=== PATIENT | female | born 1970 | race Caucasian/White ===

== ENCOUNTER 2016-08-29 19:19 | Emergency (ER) | payer MEDICAID, OTHER ==
[~2016-08-29] VITALS: Ht 162.6 cm; Wt 68.0 kg
[~2016-08-29 19:19] MED LIST: BENZ0.5T32 PO; CLON.1 PO; FLUP10 PO; LITH300C3 PO; RISP2 PO
[2016-08-29] MEDS ORDERED: [UNRECOGNIZED DRUG - REMARK] OU (19:46)
[2016-08-29 19:52] LABS: GLUCOSE,POINT OF CARE 127 MG/DL (70-110)
[2016-08-29] MEDS ORDERED: ACETAMINOPHEN 500 MG TABLET PO ONE (22:45)
[2016-08-29] MEDS ORDERED: KETOROLAC TROMETHAMINE 30 MG/ML VIAL IVP ONE (22:45)
[2016-08-29 23:03] LABS: BASOPHILS % (AUTO) 0.6 % (0.0-2.0); EOSINOPHILS % (AUTO) 0.9 % (1.0-6.0); HEMATOCRIT 32.7 % (36-46); HEMOGLOBIN 11.1 g/dL (12.0-16.0); LYMPHOCYTES # (AUTO) 3.1 K/uL (1.0-4.8); LYMPHOCYTES % (AUTO) 41.4 % (22.0-44.0); MEAN CORPUSCULAR HEMOGLOBIN 28.6 pg (26.0-34.0); MEAN CORPUSCULAR HGB CONC 33.9 G/dL (31.0-37.0); MEAN CORPUSCULAR VOLUME 84 fL (80-100); MONOCYTES # (AUTO) 0.5 K/uL (0.1-1.0); MONOCYTES % (AUTO) 6.2 % (2.0-9.0); NEUTROPHILS # (AUTO) 3.8 K/uL (1.8-7.7); NEUTROPHILS % (AUTO) 50.9 % (40.0-70.0); PLATELET COUNT (AUTO) 159 K/uL (150-450); RED BLOOD CELL COUNT(AUTO) 3.88 MIL/uL (4.00-5.20); RED CELL DISTRIBUTION WIDTH 14.6 % (11.5-14.5); WHITE BLOOD COUNT (AUTO) 7.5 K/uL (4.5-11.0)
[2016-08-29 23:17] LABS: ANION GAP 9 mmol/L (8-16); CALCIUM, TOTAL 8.3 mg/dL (8.8-10.5); CARBON DIOXIDE 25 mmol/L (22-29); CHLORIDE 105 mmol/L (98-107); GLOMERULAR FILTR. RATE CALC > 60 mL/min (>60); POTASSIUM 3.5 mmol/L (3.5-5.1); SODIUM SERUM 139 mmol/L (136-145); UREA NITROGEN, BLOOD 10 mg/dL (7-18)
[2016-08-29 23:23] LABS: ALANINE AMINOTRANSFERASE 24 U/L (12-78); ALBUMIN 3.6 g/dL (3.4-5.0); ASPARTATE AMINOTRANSFERASE 9 U/L (15-37); BILIRUBIN,TOTAL 0.4 mg/dL (0.1-1.0); TOTAL PROTEIN, SERUM 6.8 g/dL (6.4-8.2)
[2016-08-29 23:29] VITALS: BP 115/65
== END 2016-08-30 00:22 | disposition home or self-care (01) ==
LOC: EMS 19:20
DX: M62.838 Other muscle spasm (principal); R07.89 Other chest pain; I25.2 Old myocardial infarction; F17.210 Nicotine dependence, cigarettes, uncomplicated; F12.90 Cannabis use, unspecified, uncomplicated
CPT/HCPCS: 36415; 71010; 80053; 82962; 84484; 84703; 85025; 93005; 96374; 99285; 99406; J1885

== ENCOUNTER 2016-09-05 11:21 | Emergency (ER) | payer OTHER ==
[~2016-09-05] VITALS: Ht 162.6 cm; Wt 68.2 kg
[~2016-09-05 11:21] MED LIST changes: -CLON.1 PO; -FLUP10 PO; -LITH300C3 PO; +[UNRECOGNIZED DRUG - REMARK] OU
[2016-09-05] MEDS ORDERED: RISP4 PO (11:40)
[2016-09-05 11:47] LABS: GLUCOSE,POINT OF CARE 108 MG/DL (70-110)
[2016-09-05] MEDS ORDERED: MECLIZINE HCL 25 MG TABLET PO ONE (12:00)
[2016-09-05 12:02] LABS: BASOPHILS % (AUTO) 0.7 % (0.0-2.0); EOSINOPHILS % (AUTO) 1.1 % (1.0-6.0); HEMATOCRIT 35.1 % (36-46); HEMOGLOBIN 12.2 g/dL (12.0-16.0); LYMPHOCYTES # (AUTO) 1.1 K/uL (1.0-4.8); LYMPHOCYTES % (AUTO) 18.2 % (22.0-44.0); MEAN CORPUSCULAR HEMOGLOBIN 29.5 pg (26.0-34.0); MEAN CORPUSCULAR HGB CONC 34.8 G/dL (31.0-37.0); MEAN CORPUSCULAR VOLUME 85 fL (80-100); MONOCYTES # (AUTO) 0.7 K/uL (0.1-1.0); MONOCYTES % (AUTO) 12.8 % (2.0-9.0); NEUTROPHILS # (AUTO) 3.9 K/uL (1.8-7.7); NEUTROPHILS % (AUTO) 67.2 % (40.0-70.0); PLATELET COUNT (AUTO) 146 K/uL (150-450); RED BLOOD CELL COUNT(AUTO) 4.14 MIL/uL (4.00-5.20); RED CELL DISTRIBUTION WIDTH 14.6 % (11.5-14.5); WHITE BLOOD COUNT (AUTO) 5.8 K/uL (4.5-11.0)
[2016-09-05 12:45] VITALS: BP 111/76
[2016-09-05 12:49] LABS: ANION GAP 13 mmol/L (8-16); CARBON DIOXIDE 23 mmol/L (22-29); CHLORIDE 102 mmol/L (98-107); CREATININE 0.78 mg/dL (0.60-1.30); GLOMERULAR FILTR. RATE CALC > 60 mL/min (>60); SODIUM SERUM 138 mmol/L (136-145); UREA NITROGEN, BLOOD 11 mg/dL (7-18)
[2016-09-05 13:13] LABS: ALANINE AMINOTRANSFERASE 24 U/L (12-78); ALBUMIN 3.8 g/dL (3.4-5.0); ASPARTATE AMINOTRANSFERASE 16 U/L (15-37); BILIRUBIN,TOTAL 0.5 mg/dL (0.1-1.0); CREATINE KINASE MB 0.5 ng/mL (0-5); CREATINE KINASE, TOTAL 89 U/L (26-192); TOTAL PROTEIN, SERUM 7.3 g/dL (6.4-8.2)
== END 2016-09-05 13:39 | disposition home or self-care (01) ==
LOC: EMS 11:22
DX: R42 Dizziness and giddiness (principal); R07.89 Other chest pain; J40 Bronchitis, not specified as acute or chronic; F20.9 Schizophrenia, unspecified; I25.2 Old myocardial infarction; F12.90 Cannabis use, unspecified, uncomplicated; F17.210 Nicotine dependence, cigarettes, uncomplicated
CPT/HCPCS: 70450; 82962; 93005; 99285

== ENCOUNTER 2017-07-25 18:48 | Emergency (ER) | payer OTHER ==
[~2017-07-25] VITALS: Ht 162.6 cm; Wt 80.5 kg
[~2017-07-25 18:48] MED LIST changes: -RISP2 PO; +RISP4 PO
[2017-07-25] MEDS ORDERED: BENZ1TAB10 PO (19:38)
[2017-07-25] MEDS ORDERED: IBUPROFEN 800 MG TABLET PO ONE (19:45)
[2017-07-25 21:00] VITALS: BP 138/78
== END 2017-07-25 22:42 | disposition home or self-care (01) ==
LOC: EMS 18:52
DX: S93.401A Sprain of unspecified ligament of right ankle, initial encounter (principal); F17.210 Nicotine dependence, cigarettes, uncomplicated; F12.90 Cannabis use, unspecified, uncomplicated; I25.2 Old myocardial infarction; X58.XXXA Exposure to other specified factors, initial encounter; Y93.89 Activity, other specified; Y92.89 Other specified places as the place of occurrence of the external cause; Y99.8 Other external cause status
CPT/HCPCS: 99284

== ENCOUNTER 2018-01-04 17:16 | Emergency (ER) | payer OTHER ==
[~2018-01-04] VITALS: Ht 162.6 cm; Wt 77.3 kg
[~2018-01-04 17:16] MED LIST changes: -BENZ0.5T32 PO; +BENZ1TAB10 PO
[2018-01-04 17:59] LABS: GLUCOSE,POINT OF CARE 103 MG/DL (70-110)
[2018-01-04 18:39] LABS: APPEARANCE,URINE CLOUDY (CLEAR); BILIRUBIN,URINE NEGATIVE (NEGATIVE); GLUCOSE, URINE (UA) NEGATIVE (NEGATIVE); KETONES,URINE NEGATIVE (NEGATIVE); LEUKOCYTE ESTERASE ,URINE NEGATIVE (NEGATIVE); NITRATE,URINE NEGATIVE (NEGATIVE); OCCULT BLOOD,URINE NEGATIVE (NEGATIVE); PROTEIN,URINE NEGATIVE (NEGATIVE); UROBILINOGEN,URINE 0.2 mg/dL (<=1.0)
[2018-01-04 18:41] LABS: RAPID GROUP A STREP NEGATIVE (NEGATIVE)
[2018-01-04 18:55] LABS: INFLUENZA TYPE A NEGATIVE FOR TYPE A (NEGATIVE); INFLUENZA TYPE B NEGATIVE FOR TYPE B (NEGATIVE)
[2018-01-04] MEDS ORDERED: KETOROLAC TROMETHAMINE 60 MG/2 ML VIAL IM ONE (19:45)
[2018-01-04 20:06] VITALS: BP 133/78
== END 2018-01-04 20:15 | disposition home or self-care (01) ==
LOC: EMS 17:17
DX: H54.8 Legal blindness, as defined in USA (principal); R51 Headache; E11.9 Type 2 diabetes mellitus without complications; I25.2 Old myocardial infarction; F20.9 Schizophrenia, unspecified; F17.210 Nicotine dependence, cigarettes, uncomplicated; F12.90 Cannabis use, unspecified, uncomplicated; Z79.899 Other long term (current) drug therapy
CPT/HCPCS: 81003; 82962; 87430; 87804; 96372; 99284; 99406; J1885

== ENCOUNTER 2021-10-29 11:02 | Emergency (ER) | payer OTHER ==
[~2021-10-29] VITALS: Ht 162.6 cm; Wt 68.2 kg
[~2021-10-29 11:02] MED LIST changes: -BENZ1TAB10 PO; +BENZ1TAB96 PO; -RISP4 PO; +RISP4TAB73 PO
[2021-10-29 11:32] VITALS: BP 95/60
[2021-10-29] MEDS ORDERED: TIMO5DRO35 OU (11:36)
[2021-10-29] MEDS ORDERED: ACETAMINOPHEN 500 MG TABLET PO ONE (13:00)
[2021-10-29] MEDS ORDERED: BACITRACIN 28 GM OINTMENT TP ONE (13:00)
[2021-10-29] MEDS ORDERED: DOXYCYCLINE HYCLATE 100 MG TABLET PO ONE (13:00)
[2021-10-29] MEDS ORDERED: DOXY-354 PO (13:08)
[2021-10-29 13:21] LABS: GLUCOMETER DEV NAME(LOC) ERT.5; GLUCOSE,POINT OF CARE 69 MG/DL (70-110)
== END 2021-10-29 13:41 | disposition home or self-care (01) ==
LOC: EMS 11:02
DX: S81.802A Unspecified open wound, left lower leg, initial encounter (principal); S81.801A Unspecified open wound, right lower leg, initial encounter; L03.116 Cellulitis of left lower limb; L03.115 Cellulitis of right lower limb; E11.9 Type 2 diabetes mellitus without complications; H40.9 Unspecified glaucoma; F20.9 Schizophrenia, unspecified; H54.8 Legal blindness, as defined in USA; F12.10 Cannabis abuse, uncomplicated; X58.XXXA Exposure to other specified factors, initial encounter; Y93.89 Activity, other specified; Y92.89 Other specified places as the place of occurrence of the external cause; Y99.8 Other external cause status
CPT/HCPCS: 82948; 82962; 99283; 99284

== ENCOUNTER 2022-05-22 08:55 | Emergency (ER) | payer OTHER ==
[~2022-05-22] VITALS: Ht 162.6 cm; Wt 68.2 kg
[~2022-05-22 08:55] MED LIST changes: +DOXY-354 PO; +RISP3TAB35 PO; +TIMO5DRO35 OU
[2022-05-22] MEDS ORDERED: OFLO35OS OU (09:02)
[2022-05-22] MEDS ORDERED: KETOROLAC TROMETHAMINE 30 MG/ML VIAL IM ONE (12:15)
[2022-05-22] MEDS ORDERED: ACETAMINOPHEN 500 MG TABLET PO ONE (12:15)
[2022-05-22 13:24] VITALS: BP 133/78
== END 2022-05-22 13:41 | disposition home or self-care (01) ==
LOC: EMS 08:57
DX: S09.90XA Unspecified injury of head, initial encounter (principal); E11.9 Type 2 diabetes mellitus without complications; F20.9 Schizophrenia, unspecified; F17.210 Nicotine dependence, cigarettes, uncomplicated; H54.8 Legal blindness, as defined in USA; F12.90 Cannabis use, unspecified, uncomplicated; Z98.890 Other specified postprocedural states; X58.XXXA Exposure to other specified factors, initial encounter; Y93.89 Activity, other specified; Y92.89 Other specified places as the place of occurrence of the external cause; Y99.8 Other external cause status
CPT/HCPCS: 99283; 96372; J1885

== ENCOUNTER 2022-06-25 08:12 | Emergency (ER) | payer OTHER ==
[~2022-06-25] VITALS: Ht 165.1 cm; Wt 75.0 kg
[~2022-06-25 08:12] MED LIST changes: -DOXY-354 PO; +OFLO35OS OU; -TIMO5DRO35 OU; +TIMO5DRO47 OU
[2022-06-25] MEDS ORDERED: RISP1DIS IM (08:17)
[2022-06-25] MEDS ORDERED: BENZ2TAB76 PO (08:17)
[2022-06-25] MEDS ORDERED: IBUPROFEN 600 MG TABLET PO ONE (09:45)
[2022-06-25] MEDS ORDERED: ACETAMINOPHEN 325 MG TABLET PO ONE (09:45)
[2022-06-25 11:08] LABS: APPEARANCE,URINE CLEAR (CLEAR); BILIRUBIN,URINE NEGATIVE (NEGATIVE); GLUCOSE, URINE (UA) NEGATIVE (NEGATIVE); KETONES,URINE NEGATIVE (NEGATIVE); LEUKOCYTE ESTERASE ,URINE NEGATIVE (NEGATIVE); NITRATE,URINE NEGATIVE (NEGATIVE); OCCULT BLOOD,URINE NEGATIVE (NEGATIVE); PROTEIN,URINE NEGATIVE (NEGATIVE); SPECIFIC GRAVITIY, URINE 1.002 (1.003-1.030); UROBILINOGEN,URINE <=1.0 mg/dL (<=1.0)
[2022-06-25 11:46] VITALS: BP 128/69
[2022-06-25] MEDS ORDERED: AMOX1TAB16 PO (12:07)
== END 2022-06-25 12:33 | disposition home or self-care (01) ==
LOC: EMS 08:15
DX: K08.89 Other specified disorders of teeth and supporting structures (principal); N76.89 Other specified inflammation of vagina and vulva; E11.9 Type 2 diabetes mellitus without complications; F20.9 Schizophrenia, unspecified; F17.210 Nicotine dependence, cigarettes, uncomplicated; F12.90 Cannabis use, unspecified, uncomplicated; Z98.890 Other specified postprocedural states; H54.8 Legal blindness, as defined in USA
CPT/HCPCS: 81003; 82962; 87255; 87491; 87591; 99283

== ENCOUNTER 2022-09-23 08:01 | Emergency (ER) | payer OTHER ==
[~2022-09-23] VITALS: Ht 162.6 cm; Wt 68.2 kg
[~2022-09-23 08:01] MED LIST changes: +AMOX1TAB16 PO; -BENZ1TAB96 PO; +BENZ2TAB71 PO; -OFLO35OS OU; +RISP1DIS IM; -RISP3TAB35 PO; -RISP4TAB73 PO; -TIMO5DRO47 OU; -[UNRECOGNIZED DRUG - REMARK] OU
[2022-09-23] MEDS ORDERED: TETR15DR24 OP (08:04)
[2022-09-23 08:05] VITALS: TEMP 98.6
[2022-09-23] MEDS ORDERED: OxyCODONE HCL/ACETAMINOPHEN 5-325 MG TABLET PO ONE (08:45)
[2022-09-23] MEDS ORDERED: HYDR-4723 PO (09:50)
[2022-09-23 11:47] VITALS: BP 125/86; PULSE 82; RESP 16
== END 2022-09-23 11:51 | disposition home or self-care (01) ==
LOC: EMS 08:04
DX: S02.5XXA Fracture of tooth (traumatic), initial encounter for closed fracture (principal); E11.9 Type 2 diabetes mellitus without complications; F20.9 Schizophrenia, unspecified; I25.2 Old myocardial infarction; H40.9 Unspecified glaucoma; I63.9 Cerebral infarction, unspecified; F17.210 Nicotine dependence, cigarettes, uncomplicated; F12.90 Cannabis use, unspecified, uncomplicated; X58.XXXA Exposure to other specified factors, initial encounter; Y93.89 Activity, other specified; Y92.89 Other specified places as the place of occurrence of the external cause; Y99.8 Other external cause status
CPT/HCPCS: 99283

== ENCOUNTER 2022-11-01 11:52 | Emergency (ER) | payer OTHER ==
[~2022-11-01] VITALS: Ht 162.6 cm; Wt 68.2 kg
[~2022-11-01 11:52] MED LIST changes: +HYDR-4723 PO; +IBUP-1492 PO; +TETR15DR24 OP
[2022-11-01 11:59] VITALS: TEMP 98.6
[2022-11-01] MEDS ORDERED: KETOROLAC TROMETHAMINE 60 MG/2 ML VIAL IM ONE (13:45)
[2022-11-01] MEDS ORDERED: CEPH-558 PO (16:05)
[2022-11-01 17:17] VITALS: BP 131/72; PULSE 66; RESP 18
== END 2022-11-01 17:18 | disposition home or self-care (01) ==
LOC: EMS 11:54
DX: S90.211A Contusion of right great toe with damage to nail, initial encounter (principal); F17.210 Nicotine dependence, cigarettes, uncomplicated; F10.90 Alcohol use, unspecified, uncomplicated; F20.9 Schizophrenia, unspecified; H54.8 Legal blindness, as defined in USA; Z98.890 Other specified postprocedural states; W45.8XXA Other foreign body or object entering through skin, initial encounter; Y93.89 Activity, other specified; Y92.89 Other specified places as the place of occurrence of the external cause; Y99.8 Other external cause status
CPT/HCPCS: 99283; 73620; 96372; J1885

== ENCOUNTER 2022-11-03 09:20 | Emergency (ER) | payer OTHER ==
[~2022-11-03] VITALS: Ht 162.6 cm; Wt 68.2 kg
[~2022-11-03 09:20] MED LIST changes: -AMOX1TAB16 PO; +CEPH-558 PO; -HYDR-4723 PO; -IBUP-1492 PO
[2022-11-03 09:26] VITALS: BP 106/69; PULSE 78; RESP 16; TEMP 98.4
[2022-11-03] MEDS ORDERED: OxyCODONE HCL/ACETAMINOPHEN 5-325 MG TABLET PO ONE (11:15)
== END 2022-11-03 11:37 | disposition home or self-care (01) ==
LOC: EMS 09:20
DX: S90.211A Contusion of right great toe with damage to nail, initial encounter (principal); E11.9 Type 2 diabetes mellitus without complications; F20.9 Schizophrenia, unspecified; H54.8 Legal blindness, as defined in USA; F17.210 Nicotine dependence, cigarettes, uncomplicated; F10.90 Alcohol use, unspecified, uncomplicated; Z98.890 Other specified postprocedural states; X58.XXXA Exposure to other specified factors, initial encounter; Y93.89 Activity, other specified; Y92.89 Other specified places as the place of occurrence of the external cause; Y99.8 Other external cause status
CPT/HCPCS: 82962; 99283

== ENCOUNTER 2023-01-22 08:23 | Emergency (ER) | payer OTHER ==
[~2023-01-22] VITALS: Ht 165.1 cm; Wt 68.2 kg
[2023-01-22 08:25] VITALS: TEMP 98.3
[2023-01-22 08:36] LABS: COVID AG,FIA SOURCE NASAL SWAB
[2023-01-22 09:02] LABS: INFLUENZA TYPE A NEGATIVE FOR TYPE A (NEGATIVE); INFLUENZA TYPE B NEGATIVE FOR TYPE B (NEGATIVE)
[2023-01-22 09:05] LABS: SARS-COV2 (COVID) ANTIGEN,FIA Positive (Negative)
[2023-01-22 09:25] LABS: BASOPHILS % (AUTO) 1.2 % (0.0-2.0); EOSINOPHILS % (AUTO) 0.8 % (1.0-6.0); HEMATOCRIT 37.2 % (36-46); LYMPHOCYTES # (AUTO) 1.4 K/uL (1.0-4.8); LYMPHOCYTES % (AUTO) 24.8 % (22.0-44.0); MEAN CORPUSCULAR HEMOGLOBIN 32.8 pg (26.0-34.0); MEAN CORPUSCULAR HGB CONC 34.8 G/dL (31.0-37.0); MEAN CORPUSCULAR VOLUME 94 fL (80-100); MONOCYTES # (AUTO) 0.9 K/uL (0.1-1.0); MONOCYTES % (AUTO) 16.4 % (2.0-9.0); NEUTROPHILS # (AUTO) 3.2 K/uL (1.8-7.7); NEUTROPHILS % (AUTO) 56.8 % (40.0-70.0); PLATELET COUNT (AUTO) 127 K/uL (150-450); RED BLOOD CELL COUNT(AUTO) 3.95 MIL/uL (4.00-5.20); WHITE BLOOD COUNT (AUTO) 5.6 K/uL (4.5-11.0)
[2023-01-22] MEDS ORDERED: ONDANSETRON HCL 4 MG TABLET PO ONE (09:30)
[2023-01-22] MEDS ORDERED: ACETAMINOPHEN 500 MG TABLET PO ONE (09:30)
[2023-01-22 09:38] LABS: ANION GAP 8 mmol/L (8-16); CALCIUM, TOTAL 8.7 mg/dL (8.8-10.5); CARBON DIOXIDE 25 mmol/L (22-29); CHLORIDE 100 mmol/L (98-107); GLOMERULAR FILTR. RATE CALC > 60 mL/min (>60); GLUCOSE,RANDOM 105 mg/dL (70-110); SODIUM SERUM 133 mmol/L (136-145); UREA NITROGEN, BLOOD 10 mg/dL (7-18)
[2023-01-22 09:47] LABS: ALANINE AMINOTRANSFERASE 58 U/L (12-78); ALBUMIN 3.5 g/dL (3.4-5.0); ALKALINE PHOSPHATASE 66 U/L (46-116); ASPARTATE AMINOTRANSFERASE 35 U/L (15-37); BILIRUBIN,TOTAL 0.6 mg/dL (0.1-1.0); TOTAL PROTEIN, SERUM 7.7 g/dL (6.4-8.2)
[2023-01-22] MEDS ORDERED: ACET-3385 PO (09:48)
[2023-01-22 09:56] LABS: APPEARANCE,URINE CLEAR (CLEAR); BILIRUBIN,URINE NEGATIVE (NEGATIVE); COLOR,URINE LIGHT YELLOW (YELLOW); GLUCOSE, URINE (UA) NEGATIVE (NEGATIVE); KETONES,URINE NEGATIVE (NEGATIVE); LEUKOCYTE ESTERASE ,URINE NEGATIVE (NEGATIVE); NITRATE,URINE NEGATIVE (NEGATIVE); OCCULT BLOOD,URINE SMALL (NEGATIVE); PROTEIN,URINE NEGATIVE (NEGATIVE); SPECIFIC GRAVITIY, URINE 1.007 (1.003-1.030); UROBILINOGEN,URINE <=1.0 mg/dL (<=1.0)
[2023-01-22 10:01] LABS: HCG,QUAL URINE NEGATIVE (NEGATIVE)
[2023-01-22 10:29] LABS: BACTERIA,URINE None Seen /HPF (None Seen); RBC,URINE None Seen /HPF (0-2); SQUAMOUS EPITHELIAL CELL,UR Few /LPF (None Seen); WBC,URINE None Seen /HPF (0-5)
[2023-01-22 12:02] VITALS: BP 132/76; PULSE 78; RESP 16
== END 2023-01-22 12:50 | disposition home or self-care (01) ==
LOC: EMS 08:40
DX: U07.1 COVID-19 (principal); E11.9 Type 2 diabetes mellitus without complications; F20.9 Schizophrenia, unspecified; F17.210 Nicotine dependence, cigarettes, uncomplicated; F10.90 Alcohol use, unspecified, uncomplicated; H54.8 Legal blindness, as defined in USA; Z98.890 Other specified postprocedural states
CPT/HCPCS: 99284; 71045; 87426; 80053; 81001; 85025; 87804; 36415; 84703; Q0162; C9803

== ENCOUNTER 2023-03-30 14:37 | Emergency (ER) | payer OTHER ==
[~2023-03-30] VITALS: Ht 165.1 cm; Wt 75.0 kg
[~2023-03-30 14:37] MED LIST changes: +ACET-3385 PO
[2023-03-30 15:09] VITALS: TEMP 97.9
[2023-03-30] MEDS ORDERED: ACET-66 PO (18:18)
[2023-03-30] MEDS ORDERED: IBUP-1554 PO (18:18)
[2023-03-30] MEDS ORDERED: PENI500T2 PO (18:18)
[2023-03-30 18:37] VITALS: BP 112/82; PULSE 76; RESP 18
== END 2023-03-30 18:47 | disposition home or self-care (01) ==
LOC: EMS 15:06
DX: K04.7 Periapical abscess without sinus (principal); F20.9 Schizophrenia, unspecified; E11.9 Type 2 diabetes mellitus without complications; F17.210 Nicotine dependence, cigarettes, uncomplicated; F10.90 Alcohol use, unspecified, uncomplicated; Z98.890 Other specified postprocedural states; Y90.9 Presence of alcohol in blood, level not specified
CPT/HCPCS: 99283

== ENCOUNTER 2023-04-12 09:01 | Emergency (ER) | payer OTHER ==
[~2023-04-12] VITALS: Ht 162.6 cm; Wt 72.7 kg
[~2023-04-12 09:01] MED LIST changes: +ACET-66 PO; -CEPH-558 PO; +IBUP-1554 PO; +PENI500T2 PO; -RISP1DIS IM; -TETR15DR24 OP
[2023-04-12 09:12] VITALS: TEMP 98.4
[2023-04-12] MEDS ORDERED: PALI39DI IM (09:12)
[2023-04-12 10:22] LABS: BASOPHILS % (AUTO) 0.7 % (0.0-2.0); HEMATOCRIT 41.9 % (36-46); HEMOGLOBIN 14.1 g/dL (12.0-16.0); LYMPHOCYTES # (AUTO) 2.3 K/uL (1.0-4.8); LYMPHOCYTES % (AUTO) 29.1 % (22.0-44.0); MEAN CORPUSCULAR HEMOGLOBIN 31.9 pg (26.0-34.0); MEAN CORPUSCULAR HGB CONC 33.7 G/dL (31.0-37.0); MEAN CORPUSCULAR VOLUME 95 fL (80-100); MONOCYTES # (AUTO) 0.4 K/uL (0.1-1.0); MONOCYTES % (AUTO) 4.8 % (2.0-9.0); NEUTROPHILS # (AUTO) 5.2 K/uL (1.8-7.7); NEUTROPHILS % (AUTO) 64.4 % (40.0-70.0); PLATELET COUNT (AUTO) 185 K/uL (150-450); RED BLOOD CELL COUNT(AUTO) 4.41 MIL/uL (4.00-5.20); RED CELL DISTRIBUTION WIDTH 12.6 % (11.5-14.5)
[2023-04-12 10:37] LABS: TROPONIN I-HIGH SENSITIVITY Less Than 4 ng/L (<51)
[2023-04-12 10:41] LABS: ANION GAP 12 mmol/L (8-16); CALCIUM, TOTAL 8.9 mg/dL (8.8-10.5); CARBON DIOXIDE 24 mmol/L (22-29); CHLORIDE 104 mmol/L (98-107); CREATININE 0.71 mg/dL (0.60-1.30); GLOMERULAR FILTR. RATE CALC > 60 mL/min (>60); GLUCOSE,RANDOM 99 mg/dL (70-110); POTASSIUM 4.1 mmol/L (3.5-5.1); SODIUM SERUM 140 mmol/L (136-145); UREA NITROGEN, BLOOD 13 mg/dL (7-18)
[2023-04-12 10:47] LABS: ALANINE AMINOTRANSFERASE 23 U/L (12-78); ALBUMIN 3.9 g/dL (3.4-5.0); ALKALINE PHOSPHATASE 65 U/L (46-116); ASPARTATE AMINOTRANSFERASE 12 U/L (15-37); BILIRUBIN,TOTAL 0.4 mg/dL (0.1-1.0); TOTAL PROTEIN, SERUM 7.3 g/dL (6.4-8.2)
[2023-04-12] MEDS ORDERED: KETOROLAC TROMETHAMINE 60 MG/2 ML VIAL IM ONE (12:15)
[2023-04-12 12:42] VITALS: BP 121/95; PULSE 60; RESP 18
== END 2023-04-12 13:31 | disposition home or self-care (01) ==
LOC: EMS 09:01
DX: R07.89 Other chest pain (principal); E11.9 Type 2 diabetes mellitus without complications; F20.9 Schizophrenia, unspecified; F17.210 Nicotine dependence, cigarettes, uncomplicated; F10.90 Alcohol use, unspecified, uncomplicated; Z98.890 Other specified postprocedural states
CPT/HCPCS: 99285; 71045; 80053; 82962; 84484; 85025; 36415; 93005; 96372; J1885

== ENCOUNTER 2023-07-11 09:13 | Emergency (ER) | payer OTHER ==
[~2023-07-11] VITALS: Ht 162.6 cm; Wt 75.0 kg
[~2023-07-11 09:13] MED LIST changes: -ACET-3385 PO; -ACET-66 PO; -IBUP-1554 PO; +PALI39DI IM; -PENI500T2 PO
[2023-07-11 09:25] VITALS: BP 123/75; PULSE 76; RESP 18; TEMP 97.9
[2023-07-11] MEDS ORDERED: IBUP-1492 PO (09:39)
[2023-07-11] MEDS ORDERED: ACET-3385 PO (09:39)
[2023-07-11] MEDS ORDERED: LIDO700A15 TP (09:39)
[2023-07-11] MEDS: ACETAMINOPHEN 500 MG TABLET PO ONE (09:44)
[2023-07-11] MEDS: KETOROLAC TROMETHAMINE 30 MG/ML VIAL IM ONE (09:45)
[2023-07-11] MEDS: LIDOCAINE 5% TRANSDERMAL PATCH TD ONE (09:45)
== END 2023-07-11 10:00 | disposition home or self-care (01) ==
LOC: EMS 09:24
DX: S39.012A Strain of muscle, fascia and tendon of lower back, initial encounter (principal); E11.9 Type 2 diabetes mellitus without complications; F20.9 Schizophrenia, unspecified; F17.210 Nicotine dependence, cigarettes, uncomplicated; F10.90 Alcohol use, unspecified, uncomplicated; Z98.890 Other specified postprocedural states; X58.XXXA Exposure to other specified factors, initial encounter; Y93.89 Activity, other specified; Y92.89 Other specified places as the place of occurrence of the external cause; Y99.8 Other external cause status
CPT/HCPCS: 99283; 82962; 96372; J1885

== ENCOUNTER 2024-02-07 07:51 | Emergency (ER) | payer OTHER ==
[~2024-02-07] VITALS: Ht 162.6 cm; Wt 72.7 kg
[~2024-02-07 07:51] MED LIST changes: +ACET-3385 PO; +BENZ0.5T52 PO; -BENZ2TAB71 PO; +BENZ2TAB84 PO; +DICY20TA95 PO; +IBUP-1492 PO; +LIDO700A15 TP
[2024-02-07 07:54] VITALS: BP 115/77; PULSE 63; RESP 18; TEMP 98.4; O2SAT 99
[2024-02-07] MEDS ORDERED: OFLO5DRO49 OS (07:59)
[2024-02-07] MEDS ORDERED: CYCL-448 PO (09:30)
[2024-02-07] MEDS: KETOROLAC TROMETHAMINE 30 MG/ML VIAL IM ONE (09:39)
[2024-02-07] MEDS: ACETAMINOPHEN 500 MG TABLET PO ONE (09:39)
[2024-02-07] MEDS: LIDOCAINE 5% TRANSDERMAL PATCH TD ONE (09:40)
== END 2024-02-07 10:56 | disposition home or self-care (01) ==
LOC: EMS 07:51
DX: S29.012A Strain of muscle and tendon of back wall of thorax, initial encounter (principal); M54.6 Pain in thoracic spine; F17.210 Nicotine dependence, cigarettes, uncomplicated; Z88.6 Allergy status to analgesic agent; Z79.899 Other long term (current) drug therapy; X58.XXXA Exposure to other specified factors, initial encounter; Y93.89 Activity, other specified; Y92.89 Other specified places as the place of occurrence of the external cause; Y99.8 Other external cause status
CPT/HCPCS: 99283; 99406; 96372; J1885

== ENCOUNTER 2024-07-17 07:54 | Emergency (ER) | payer OTHER ==
[~2024-07-17] VITALS: Ht 162.6 cm; Wt 68.2 kg
[~2024-07-17 07:54] MED LIST changes: +CYCL-448 PO; -DICY20TA95 PO; -IBUP-1492 PO; -LIDO700A15 TP; +OFLO5DRO49 OS
[2024-07-17 08:05] VITALS: TEMP 98.6
[2024-07-17] MEDS: LIDOCAINE 5% TRANSDERMAL PATCH TD ONE (09:49)
[2024-07-17] MEDS: KETOROLAC TROMETHAMINE 60 MG/2 ML VIAL IM ONE (09:49)
[2024-07-17] MEDS ORDERED: LIDO-57 TP (10:49)
[2024-07-17] MEDS ORDERED: PERCT PO (10:49)
[2024-07-17 11:04] VITALS: BP 99/73; PULSE 76; RESP 18; O2SAT 99
== END 2024-07-17 11:05 | disposition home or self-care (01) ==
LOC: EMS 07:54
DX: G89.29 Other chronic pain (principal); M54.50 Low back pain, unspecified; F17.210 Nicotine dependence, cigarettes, uncomplicated; Z88.6 Allergy status to analgesic agent; Z79.899 Other long term (current) drug therapy
CPT/HCPCS: 99283; 96372; J1885

== ENCOUNTER 2024-10-08 07:47 | Emergency (ER) | payer OTHER ==
[~2024-10-08] VITALS: Ht 162.6 cm; Wt 68.2 kg
[~2024-10-08 07:47] MED LIST changes: -BENZ0.5T52 PO; +LIDO-57 TP; +PERCT PO
[2024-10-08 07:54] VITALS: TEMP 99
[2024-10-08 08:00] VITALS: BP 106/66; PULSE 71; RESP 18; O2SAT 98
[2024-10-08] MEDS ORDERED: IBUP-1492 PO (08:09)
[2024-10-08] MEDS: KETOROLAC TROMETHAMINE 30 MG/ML VIAL IM ONE (08:13)
[2024-10-08] MEDS: ACETAMINOPHEN 500 MG TABLET PO ONE (08:13)
== END 2024-10-08 08:32 | disposition home or self-care (01) ==
LOC: EMS 07:50
DX: M54.12 Radiculopathy, cervical region (principal); G89.29 Other chronic pain; M54.9 Dorsalgia, unspecified; F17.210 Nicotine dependence, cigarettes, uncomplicated; Z88.6 Allergy status to analgesic agent; Z79.899 Other long term (current) drug therapy
CPT/HCPCS: 99283; 96372; J1885

== ENCOUNTER 2024-10-17 13:04 | Emergency (ER) | payer OTHER ==
[~2024-10-17] VITALS: Ht 162.6 cm; Wt 68.0 kg
[~2024-10-17 13:04] MED LIST changes: +IBUP-1492 PO
[2024-10-17 13:08] VITALS: TEMP 98.1
[2024-10-17] MEDS ORDERED: TIMO5DRO18 OU (13:52)
[2024-10-17] MEDS: LIDOCAINE 5% TRANSDERMAL PATCH TD ONE (14:12)
[2024-10-17] MEDS ORDERED: TRAM50TA5 PO (14:35)
[2024-10-17] MEDS ORDERED: LIDO-57 TP (14:46)
[2024-10-17 15:05] VITALS: BP 135/78; PULSE 65; RESP 18; O2SAT 99
== END 2024-10-17 15:35 | disposition home or self-care (01) ==
LOC: EMS 13:04
DX: M79.18 Myalgia, other site (principal); M25.511 Pain in right shoulder; G89.29 Other chronic pain; F17.210 Nicotine dependence, cigarettes, uncomplicated; H54.8 Legal blindness, as defined in USA; Z98.890 Other specified postprocedural states; Z88.6 Allergy status to analgesic agent; Z79.899 Other long term (current) drug therapy
CPT/HCPCS: 99283

== ENCOUNTER 2024-11-16 10:35 | Emergency (ER) | payer OTHER ==
[~2024-11-16] VITALS: Ht 162.6 cm; Wt 68.2 kg
[~2024-11-16 10:35] MED LIST changes: -CYCL-448 PO; -PERCT PO; +TIMO5DRO18 OU; +TRAM50TA5 PO
[2024-11-16 10:42] VITALS: TEMP 97.9
[2024-11-16] MEDS: LIDOCAINE 5% TRANSDERMAL PATCH TD ONE (12:28)
[2024-11-16] MEDS ORDERED: IBUP-1492 PO (12:28)
[2024-11-16 12:53] VITALS: BP 119/72; PULSE 71; RESP 18; O2SAT 97
== END 2024-11-16 12:54 | disposition home or self-care (01) ==
LOC: EMS 10:37
DX: G89.29 Other chronic pain (principal); M54.50 Low back pain, unspecified; M25.511 Pain in right shoulder; F17.210 Nicotine dependence, cigarettes, uncomplicated; H54.8 Legal blindness, as defined in USA; Z98.890 Other specified postprocedural states; Z88.6 Allergy status to analgesic agent; Z79.899 Other long term (current) drug therapy
CPT/HCPCS: 99283